=== PATIENT | female | born 1975 | race Caucasian/White ===

== ENCOUNTER 2021-11-17 17:00 | Outpatient (RCR) | payer OTHER, SELFPAY | END 2022-09-07 23:59 | disposition home or self-care (01) | PROVIDERS: PCP Orthopaedic Surgery; Visit Provider Orthopaedic Surgery | DX: M77.12 Lateral epicondylitis, left elbow (principal); Z51.89 Encounter for other specified aftercare | CPT/HCPCS: 97033; 97035; 97110; 97140; 97165; X5282 ==

== ENCOUNTER 2022-08-02 08:25 | Outpatient (CLI) | payer OTHER, SELFPAY | END 2022-08-02 08:26 | disposition home or self-care (01) | LOC: NFLDREF 08-03 00:51 | PROVIDERS: Visit Provider Physician Assistant | DX: Z13.1 Encounter for screening for diabetes mellitus (principal); Z13.6 Encounter for screening for cardiovascular disorders | CPT/HCPCS: 80061; 82947 ==

== ENCOUNTER 2022-09-20 12:54 | Outpatient (CLI) | payer OTHER, SELFPAY ==
--- NOTE | 2022-09-20 13:00 | CRLHL7_ITS ---
For Patients: As a result of the Cures Act, medical imaging exams and procedure reports are released immediately into your electronic medical record. You may view this report before your referring provider. If you have questions, please contact your health care provider. BILATERAL SCREENING MAMMOGRAM WITH COMPUTER-AIDED DETECTION AND TOMOSYNTHESIS TECHNIQUE: CC and MLO views were obtained. These mammographic images have been obtained using full-field digital technique. These mammographic images were interpreted with the benefit of computer-aided detection. Breast Tomosynthesis was used in this interpretation. COMPARISON FILM: 05/20/20, 05/07/18, 05/14/17. FINDINGS: There are scattered areas of fibroglandular density IMPRESSION: There is no radiographic evidence for malignancy. ASSESSMENT: BI-RADS Category 1: Negative RECOMMENDATION: Routine screening mammogram in 1 year. A lay language report of this examination will be provided to the patient. Wilfredo Alfaro M.D. Diagnostic Radiologist [email or web address] [email or web address]/[email or web address] Transcribed: 4:35 p.mCassy ramírez/Dictated by: Wilfredo Alfaro MD @ 09/21/2022 11:32:00 AM (Electronically Signed)
== END 2022-09-20 12:55 | disposition home or self-care (01) ==
LOC: MAMMO 12:55
PROVIDERS: Visit Provider Physician Assistant
DX: Z12.31 Encounter for screening mammogram for malignant neoplasm of breast (principal)
CPT/HCPCS: 77063; 77067

== ENCOUNTER 2023-08-29 13:44 | Outpatient (CLI) | payer OTHER, SELFPAY | END 2023-08-29 13:45 | disposition home or self-care (01) | LOC: NFLDREF 13:44 | PROVIDERS: Visit Provider Registered Nurse | DX: Z01.419 Encounter for gynecological examination (general) (routine) without abnormal findings (principal); Z13.6 Encounter for screening for cardiovascular disorders | CPT/HCPCS: 80061 ==

== ENCOUNTER 2023-09-24 08:13 | Outpatient (CLI) | payer OTHER, SELFPAY ==
--- NOTE | 2023-09-24 08:15 | CRLHL7_ITS ---
For Patients: As a result of the Cures Act, medical imaging exams and procedure reports are released immediately into your electronic medical record. You may view this report before your referring provider. If you have questions, please contact your health care provider. BILATERAL SCREENING MAMMOGRAM WITH COMPUTER-AIDED DETECTION AND TOMOSYNTHESIS TECHNIQUE: CC and MLO views were obtained. These mammographic images have been obtained using full-field digital technique. These mammographic images were interpreted with the benefit of computer-aided detection. Breast Tomosynthesis was used in this interpretation. COMPARISON FILM: 05/20/20, 05/07/18, 05/14/17. FINDINGS: There are scattered areas of fibroglandular density IMPRESSION: There is no radiographic evidence for malignancy. ASSESSMENT: BI-RADS Category 1: Negative RECOMMENDATION: Routine screening mammogram in 1 year. A lay language report of this examination will be provided to the patient. Wilfredo Alfaro M.D. Diagnostic Radiologist [email or web address] [email or web address]/[email or web address] / be/Dictated by: Wilfredo Alfaro MD @ 09/24/2023 9:24:00 AM (Electronically Signed)
== END 2023-09-24 08:14 | disposition home or self-care (01) ==
LOC: MAMMO 08:13
PROVIDERS: Visit Provider Obstetrics & Gynecology
DX: Z12.31 Encounter for screening mammogram for malignant neoplasm of breast (principal)
CPT/HCPCS: 77063; 77067

== ENCOUNTER 2024-02-05 10:24 | Day surgery (SDC) | payer OTHER, SELFPAY ==
[2024-02-05] VITALS (12 sets, daily range): BP systolic 97–113; BP diastolic 69–83; PULSE 59–95; RESP 13–16; TEMP 36.1–36.7; O2SAT 97–100; BMI 29.2
[2024-02-05] MEDS: 0.9 % SODIUM CHLORIDE 500 ML 500 ML 100 ML IV (10:45)
[2024-02-05] MEDS: SODIUM CHLORIDE 0.9 % (FLUSH) 10 ML SYRINGE IVF (10:51)
--- NOTE | 2024-02-05 11:14 | P.GSOP_ITS ---
Operative Note Date of procedure: 02/05/24 Pre-op diagnosis: 1. Symptomatic external hemorrhoids and hemorrhoidal skin tags. 2. High risk screening colonoscopy due to family history of colon polyps. Post-op diagnosis: Same Type of Procedure: 1. Screening Colonoscopy. 2. 2 quadrant external hemorrhoidectomy. Indications: 48-year-old female was seen in clinic for evaluation of hemorrhoids. Patient states that she had enlarged hemorrhoids for 18 years since the of her youngest child. She had complained of discomfort associated with the tissue around her anus. The tissue was present all the time. She described having flares of discomfort in addition to bright red blood per rectum. She denied pain with bowel movements. She had daily bowel movements with no straining. However, she noticed bright red blood per rectum with at least half of her bowel movements. She changed her diet and increase fiber in her diet. She was drinking at least 64 oz of water daily. Patient also complained of pruritus and discomfort when wearing tight clothes. On clinical exam patient had no evidence of acute anal fissure. She had a small to moderately enlarged hemorrhoidal skin tag anterior midline with a broad base. She also had a moderately enlarged posterior midline bilobed hemorrhoidal skin tag. The skin tags were edematous and firm to palpation. With anoscopy no anal masses were noted. Given patient's maximum conservative therapy and continued symptoms, 2 quadrant hemorrhoidectomy was recommended. The procedure was discussed in detail. The risks associated procedure including infection, bleeding, and the need for additional procedures were also discussed with the patient, and she agreed to proceed. Patient was also due for colonoscopy in desire to have that done prior to her hemorrhoidectomy. The risks of colonoscopy were also discussed with the patient, and she agreed to proceed. Procedure Description: After discussing the risks and benefits of the procedure, the patient signed informed consent.? The operative site was marked and the patient was brought to the operating room. Patient was placed in the lateral decubitus position and was sedated by Anesthesia. A time-out was completed and I first started with colonoscopy. Please see detailed note in Provation. After the colonoscopy was complete, spinal anesthesia was administered by anesthesia staff. The patient was then placed prone on operating table with all pressure points padded. We then proceeded with hemorrhoidectomy. External examination, digital rectal examination, and anoscopic examination were all done and revealed significantly redundant external hemorrhoidal tissue posterior midline and anterior midline with associated residual hemorrhoidal skin tags. Posterior midline external hemorrhoids were bilobed. Anterior midline hemorrhoidal skin tag had a broad base. I first started with external hemorrhoidectomy posterior midline. This was done through 2 separate incisions. An elliptical incision was made with a needle tip electrocautery from the anoderm up into the anal canal just above the dentate line. Careful dissection of the hemorrhoid complex was done in the plane between the internal anal sphincter and the submucosal vascular plexus up to just above the dentate line in each quadrant described above. Having established the proper plane, the hemorrhoidal tissue was then excised with the Ligasure device and sent to Pathology for analysis. Care was taken to preserve mucosa for a tension- free closure. The internal sphincter fibers were visualized at the base of the wound and were intact. The wound was closed in a running locked manner starting at the apex (proximal aspect of elliptical excision) with 3-0 chromic suture, coming out to the anoderm and then running back up in a simple fashion and tying down at the apex. This incision was right posterior slightly off midline. A similar incision was made of left posterior laterally and the redundant skin tag with associated external hemorrhoid was excised in a similar fashion. This was also closed with 3-0 chromic suture. Hemostasis was excellent. I then turned my attention to the anterior midline broad hemorrhoidal skin tag. The hemorrhoidal skin tag that was associated with enlarged external hemorrhoid right anterior midline was excised first. This was done in a similar fashion as described above. Mucosa was preserved for tension free closure. When this incision was closed, only small residual skin tag was left to the left of midline anteriorly. This was excised with cautery and the incision was left open. Hemostasis was excellent at the end of the case. A mixture of Marcaine and Exparel was injected around the anus and for bilateral pudendal nerve blocks. Sterile gauze was placed outside of the anus. ? The patient was then woken and transported to the recovery area in stable condition. ? The patient tolerated the procedure well. Findings: Redundant external hemorrhoids with associated hemorrhoidal skin tags. Anesthesia: MAC, local and spinal Surgeon: Nataly Dee MD Estimated blood loss (mL): 5 Additional Specimen Information: 1. External hemorrhoids. Condition: stable Disposition: PACU
--- NOTE | 2024-02-05 11:20 | W.PM.H&PU ---
History & Physical Update History & Physical Update H&P Reviewed and patient assessed: No changes noted
[2024-02-05] MEDS: BUPIVACAINE 0.25% 30 ML INJECTION (12:40)
[2024-02-05] MEDS: BUPIVACAINE LIPOSOME 133 MG/10 ML INJ INFILTRATI (12:40)
--- NOTE | 2024-02-05 12:52 | W.ANESCHARGE ---
Anesthesia Charges Start Date/Time Anesthesia Start Date: 02/05/24 Anesthesia Start Time: 11:25 Stop Date/Time Anesthesia Stop Date: 02/05/24 Anesthesia Stop Time: 12:52
--- NOTE | 2024-02-05 12:53 | W.ANESCHARGE ---
Anesthesia Charges Start Date/Time Anesthesia Start Date: 02/05/24 Anesthesia Start Time: 11:25 Stop Date/Time Anesthesia Stop Date: 02/05/24 Anesthesia Stop Time: 12:52
== END 2024-02-05 14:15 | disposition home or self-care (01) ==
PROVIDERS: PCP Registered Nurse; Visit Provider Surgery
PROC: (CPT 46250; principal; 2024-02-05 11:30)
PROC: (CPT 46250; 2024-02-05 11:30)
DX: K64.8 Other hemorrhoids (principal); K64.4 Residual hemorrhoidal skin tags; Z12.11 Encounter for screening for malignant neoplasm of colon; Z83.718 Family history of other colon polyps
CPT/HCPCS: 46250; 46230; 00902; 45385; 88304; 88305; C9290; J0665; J2704; J3010; J7030

== ENCOUNTER 2025-02-13 10:33 | Outpatient (CLI) | payer OTHER, SELFPAY ==
--- NOTE | 2025-02-13 10:45 | CRLHL7_ITS ---
For Patients: As a result of the Century Cures Act, medical imaging exams and procedure reports are released immediately into your electronic medical record. You may view this report before your referring provider. If you have questions, please contact your health care provider. INDICATION: BILATERAL SCREENING MAMMOGRAM, ASYMPTOMATIC 49 Y/O FEMALE COMPARISON: 09/24/2023, 10/24/2022, 10/18/2021 TECHNIQUE: Digital mammogram in CC and MLO projections including computer-aided detection (CAD) and tomosynthesis. BREAST COMPOSITION: There are scattered areas of fibroglandular density. FINDINGS: No suspicious findings. ASSESSMENT: BI-RADS 2 Benign RECOMMENDATION: Annual screening mammogram. A lay language report of this examination will be provided to the patient. Dictated by: Linh Melchor MD @ 02/13/2025 15:20:26 (Electronically Signed)
== END 2025-02-13 10:34 | disposition home or self-care (01) ==
LOC: MAMMO 10:34
PROVIDERS: PCP Registered Nurse; Visit Provider Obstetrics & Gynecology
DX: Z12.31 Encounter for screening mammogram for malignant neoplasm of breast (principal)
CPT/HCPCS: 77063; 77067